=== PATIENT | female | born 1965 | race Caucasian/White ===

== ENCOUNTER 2018-05-12 21:00 | Inpatient (IN) | payer OTHER ==
[2018-05-12] MEDS ORDERED: ONDANSETRON 4 MG INJ IV (23:30)
[2018-05-13] MEDS ORDERED: DEXTROSE 50% 50 ML SYRINGE IV ×2 (00:30)
[2018-05-13] MEDS ORDERED: GLUCOSE GEL 15 GRAM TUBE BUCCAL (00:30)
[2018-05-13] MEDS ORDERED: GLUCAGON 1 MG INJ IM (00:30)
[2018-05-13] MEDS ORDERED: GLUCOSE GEL 15 GRAM TUBE PO ×2 (00:30)
[2018-05-13] MEDS: SOD CHLORIDE 0.9% 1,000 ML IV (01:16)
[2018-05-13] MEDS: PANTOPRAZOLE 40 MG INJ IV (06:02)
[2018-05-13] MEDS: ACETAMINOPHEN 325 MG TAB PO (06:02)
[2018-05-13] MEDS: PIPER-TAZO 3.375 GM IV (PMX) 100 ML IVPB (06:03)
[2018-05-13] MEDS: ACCU-CHEK XX (07:00)
[2018-05-13 07:13] LABS: ADD MAN DIFF? NO
[2018-05-13 07:18] LABS: BASOPHILS % 0.2 % (0.0-2.0); EOSINOPHILS # 0.2 10^3/ul (0.0-0.5); EOSINOPHILS % 2.6 % (0.0-7.0); HEMOGLOBIN 8.9 g/dl (12.0-16.0); LYMPHOCYTES % 21.6 % (15.0-51.0); MEAN CORPUSCULAR HEMOGLOBIN 29.9 pg (29.0-33.0); MEAN CORPUSCULAR VOLUME 90.6 fl (82.0-101.0); MEAN PLATELET VOLUME 9.4 fl (7.4-10.4); MONOCYTE # 0.6 10^3/ul (0.3-0.9); MONOCYTES % 6.9 % (0.0-11.0); NEUTROPHIL # 6.3 10^3/ul (1.6-7.5); NEUTROPHILS % 68.5 % (39.0-77.0); PLATELET COUNT 242 10^3/UL (140-415); RED BLOOD COUNT 2.98 10^6/ul (4.20-5.40); RED CELL DISTRIBUTION WIDTH 11.9 % (11.5-14.5)
[2018-05-13 07:18] LABS: WHITE BLOOD COUNT 9.2 10^3/ul (4.8-10.8)
[2018-05-13 07:44] LABS: ALANINE AMINOTRANSFERASE 11 IU/L (13-69); ALBUMIN 2.8 g/dl (3.3-4.9); ALBUMIN/GLOBULIN RATIO 0.93; ALKALINE PHOSPHATASE 122 IU/L (42-121); ANION GAP 12 (8-16); ASPARTATE AMINO TRANSFERASE 16 IU/L (15-46); BILIRUBIN,INDIRECT 0.1 mg/dl (0-1.1); BILIRUBIN,TOTAL 0.1 mg/dl (0.2-1.3); BLOOD UREA NITROGEN 14 mg/dl (7-20); CALCIUM 8.4 mg/dl (8.4-10.2); CARBON DIOXIDE 27 mmol/L (21-31); CHLORIDE 104 mmol/L (97-110); CREATININE 0.82 mg/dl (0.44-1.00); GLUCOSE 173 mg/dl (70-220); POTASSIUM 3.9 mmol/L (3.5-5.1); SODIUM 139 mmol/L (135-144); TOTAL PROTEIN 5.8 g/dl (6.1-8.1)
[2018-05-13] MEDS: INSULIN ASPART [NOVOLOG] 3 ML PEN SC (10:06)
== END 2018-05-13 12:05 | disposition left against medical advice (07) | DRG 690 ==
LOC: 2NE 21:00
DX: N12 Tubulo-interstitial nephritis, not specified as acute or chronic (principal); N17.9 Acute kidney failure, unspecified; E11.65 Type 2 diabetes mellitus with hyperglycemia; D63.8 Anemia in other chronic diseases classified elsewhere; Z59.0 Homelessness; Z79.4 Long term (current) use of insulin; Z91.14 Patient's other noncompliance with medication regimen
CPT/HCPCS: 80053; 82962; 85025

== ENCOUNTER 2018-05-14 20:24 | Emergency (ER) | payer OTHER ==
[2018-05-14 22:13] LABS: URINE BLOOD (Dip) POC 2+ (NEGATIVE); URINE KETONES (Dip) POC Negative (NEGATIVE); URINE LEUKOCYTE EST (Dip) POC Trace (NEGATIVE); URINE NITRITE (Dip) POC Negative (NEGATIVE); URINE TOTAL PROTEIN POC 3+ (NEGATIVE)
[2018-05-14 22:13] LABS: URINE PH (Dip) POC 5.5 (5.0-8.5)
[2018-05-14 22:28] LABS: ADD MAN DIFF? NO
[2018-05-14] MEDS: CEFTRIAXONE 1 GM/50 ML (PMX) 50 ML IVPB (22:33)
[2018-05-14] MEDS: SODIUM CHLORIDE 0.9% 1L BAG IV* (22:34)
[2018-05-14 22:35] LABS: WHITE BLOOD COUNT 8.3 10^3/ul (4.8-10.8)
[2018-05-14 22:35] LABS: BASOPHIL # 0.1 10^3/ul (0.0-0.1); BASOPHILS % 0.6 % (0.0-2.0); EOSINOPHILS # 0.2 10^3/ul (0.0-0.5); EOSINOPHILS % 2.8 % (0.0-7.0); HEMATOCRIT 32.8 % (37.0-47.0); HEMOGLOBIN 10.8 g/dl (12.0-16.0); LYMPHOCYTES % 36.7 % (15.0-51.0); MEAN CORPUSCULAR HEMOGLOBIN 29.2 pg (29.0-33.0); MEAN CORPUSCULAR HGB CONC 32.9 g/dl (32.0-37.0); MEAN CORPUSCULAR VOLUME 88.6 fl (82.0-101.0); MEAN PLATELET VOLUME 8.8 fl (7.4-10.4); MONOCYTE # 0.6 10^3/ul (0.3-0.9); MONOCYTES % 6.8 % (0.0-11.0); NEUTROPHIL # 4.3 10^3/ul (1.6-7.5); NEUTROPHILS % 51.4 % (39.0-77.0); PLATELET COUNT 388 10^3/UL (140-415); RED CELL DISTRIBUTION WIDTH 11.9 % (11.5-14.5)
[2018-05-14 22:38] LABS: ADD UMIC YES; UR ASCORBIC ACID 40 mg/dL (NEGATIVE); UR BILIRUBIN (Dip) NEGATIVE (NEGATIVE); UR BLOOD (Dip) NEGATIVE (NEGATIVE); UR CLARITY CLEAR (CLEAR); UR COLOR STRAW (YELLOW); UR GLUCOSE (Dip) 3+ mg/dL (NEGATIVE); UR KETONES (Dip) NEGATIVE (NEGATIVE); UR LEUKOCYTE ESTERASE (Dip) 1+ Leu/ul (NEGATIVE); UR NITRITE (Dip) NEGATIVE (NEGATIVE); UR RBC 4 /HPF (0-5); UR SPECIFIC GRAVITY (Dip) 1.009 (1.003-1.030); UR TOTAL PROTEIN (Dip) 2+ mg/dl (NEGATIVE); UR UROBILINOGEN (Dip) NEGATIVE (NEGATIVE); UR WBC 29 /HPF (0-5)
[2018-05-14 22:54] LABS: ALANINE AMINOTRANSFERASE 10 IU/L (13-69); ALBUMIN 3.9 g/dl (3.3-4.9); ALBUMIN/GLOBULIN RATIO 0.95; ALKALINE PHOSPHATASE 170 IU/L (42-121); ANION GAP 17 (8-16); ASPARTATE AMINO TRANSFERASE 18 IU/L (15-46); BILIRUBIN,INDIRECT 0.1 mg/dl (0-1.1); BILIRUBIN,TOTAL 0.1 mg/dl (0.2-1.3); BLOOD UREA NITROGEN 18 mg/dl (7-20); CALCIUM 9.4 mg/dl (8.4-10.2); CARBON DIOXIDE 29 mmol/L (21-31); CHLORIDE 96 mmol/L (97-110); CREATININE 0.89 mg/dl (0.44-1.00); GLUCOSE 200 mg/dl (70-220); LIPASE 127 U/L (23-300); POTASSIUM 3.9 mmol/L (3.5-5.1); SODIUM 138 mmol/L (135-144)
[2018-05-14] MEDS: KETOROLAC 15 MG INJ IV (23:11)
[2018-05-14] MEDS: METOPROLOL 5 MG INJ IV (23:11)
[2018-05-14] MEDS: METOCLOPRAMIDE 10 MG INJ IV (23:11)
[2018-05-14] MEDS: METOPROLOL 25 MG TAB PO (23:13)
[2018-05-14] MEDS ORDERED: DIPHENHYDRAMINE 50 MG INJ (23:21)
== END 2018-05-15 01:29 | disposition home or self-care (01) ==
LOC: E/R 05-15 01:29
DX: E11.65 Type 2 diabetes mellitus with hyperglycemia (principal); N12 Tubulo-interstitial nephritis, not specified as acute or chronic; I10 Essential (primary) hypertension; Z79.4 Long term (current) use of insulin
CPT/HCPCS: 36415; 71045; 80053; 81001; 81003; 82962; 83690; 85025; 93005; 96374; 96375; 99284-25

== ENCOUNTER 2018-11-03 17:36 | Emergency (ER) | payer OTHER ==
[2018-11-03 20:46] LABS: URINE PH (Dip) POC 5.5 (5.0-8.5)
[2018-11-03 20:46] LABS: URINE BLOOD (Dip) POC 2+ (NEGATIVE); URINE GLUCOSE (Dip) POC Negative (NEGATIVE); URINE KETONES (Dip) POC Negative (NEGATIVE); URINE LEUKOCYTE EST (Dip) POC 2+ (NEGATIVE); URINE NITRITE (Dip) POC Negative (NEGATIVE); URINE TOTAL PROTEIN POC 2+ (NEGATIVE)
[2018-11-03] MEDS: KETOROLAC 30 MG INJ IM (20:49)
== END 2018-11-03 21:27 | disposition home or self-care (01) ==
LOC: FTE 17:36
DX: N39.0 Urinary tract infection, site not specified (principal); E11.9 Type 2 diabetes mellitus without complications; Z79.4 Long term (current) use of insulin
CPT/HCPCS: 81003; 81025; 82962; 87086; 96372; 99284-25

== ENCOUNTER 2018-12-16 19:16 | Inpatient (IN) | payer OTHER ==
[2018-12-16] MEDS ORDERED: LACTULOSE 30ML CUP PO (22:00)
[2018-12-16] MEDS ORDERED: MAGNESIUM HYDROXIDE 30ML CUP PO (22:00)
[2018-12-16] MEDS ORDERED: BISACODYL 10 MG SUPP PR (22:00)
[2018-12-16] MEDS ORDERED: CARvedilol (CR) 10 MG CAP PO (22:30)
[2018-12-16] MEDS: ATORVASTATIN 80 MG TAB PO (23:44)
[2018-12-16] MEDS: DOCUSATE SODIUM 100 MG CAP PO (23:44)
[2018-12-16] MEDS: SENNA TAB PO (23:44)
[2018-12-16] MEDS: ACCU-CHEK XX (23:45)
[2018-12-16] MEDS: FAMOTIDINE 20 MG TAB PO (23:45)
[2018-12-16] MEDS ORDERED: GLUCOSE GEL 15 GRAM TUBE BUCCAL (23:45)
[2018-12-16] MEDS ORDERED: GLUCAGON 1 MG INJ IM (23:45)
[2018-12-16] MEDS ORDERED: DEXTROSE 50% 50 ML SYRINGE IV ×2 (23:45)
[2018-12-16] MEDS ORDERED: GLUCOSE GEL 15 GRAM TUBE PO ×2 (23:45)
[2018-12-16] MEDS: INSULIN ASPART [NOVOLOG] 3 ML PEN SC (23:51)
[2018-12-17] MEDS: LEVOFLOXACIN 250 MG TAB PO (06:40)
[2018-12-17 07:05] LABS: ADD MAN DIFF? NO
[2018-12-17 07:10] LABS: BASOPHILS % 0.5 % (0.0-2.0); EOSINOPHILS # 0.3 10^3/ul (0.0-0.5); EOSINOPHILS % 3.1 % (0.0-7.0); HEMATOCRIT 26.1 % (37.0-47.0); HEMOGLOBIN 8.5 g/dl (12.0-16.0); LYMPHOCYTES # 2.4 10^3/ul (0.8-2.9); LYMPHOCYTES % 28.4 % (15.0-51.0); MEAN CORPUSCULAR HEMOGLOBIN 28.8 pg (29.0-33.0); MEAN CORPUSCULAR HGB CONC 32.6 g/dl (32.0-37.0); MEAN CORPUSCULAR VOLUME 88.5 fl (82.0-101.0); MEAN PLATELET VOLUME 8.3 fl (7.4-10.4); MONOCYTE # 0.4 10^3/ul (0.3-0.9); MONOCYTES % 4.3 % (0.0-11.0); NEUTROPHIL # 5.3 10^3/ul (1.6-7.5); NEUTROPHILS % 63.2 % (39.0-77.0); PLATELET COUNT 370 10^3/UL (140-415); RED BLOOD COUNT 2.95 10^6/ul (4.20-5.40); RED CELL DISTRIBUTION WIDTH 12.7 % (11.5-14.5)
[2018-12-17 07:10] LABS: WHITE BLOOD COUNT 8.4 10^3/ul (4.8-10.8)
[2018-12-17 07:32] LABS: ALANINE AMINOTRANSFERASE 14 IU/L (13-69); ALBUMIN 3.4 g/dl (3.3-4.9); ALBUMIN/GLOBULIN RATIO 1.03; ALKALINE PHOSPHATASE 73 IU/L (42-121); ANION GAP 8 (5-13); ASPARTATE AMINO TRANSFERASE 25 IU/L (15-46); BILIRUBIN,INDIRECT 0.2 mg/dl (0-1.1); BILIRUBIN,TOTAL 0.2 mg/dl (0.2-1.3); BLOOD UREA NITROGEN 17 mg/dl (7-20); CALCIUM 9.3 mg/dl (8.4-10.2); CARBON DIOXIDE 27 mmol/L (21-31); CHLORIDE 107 mmol/L (97-110); CREATININE 1.32 mg/dl (0.44-1.00); Estimated GFR 42 mL/min (>60); GLUCOSE 178 mg/dl (70-220); POTASSIUM 4.3 mmol/L (3.5-5.1); SODIUM 142 mmol/L (135-144); TOTAL PROTEIN 6.7 g/dl (6.1-8.1)
[2018-12-17] MEDS ORDERED: INSULIN ASPART [NOVOLOG] 3 ML PEN SC (07:35)
[2018-12-17] MEDS: ACCU-CHEK XX ×4 (07:53→20:38)
[2018-12-17] MEDS: INSULIN ASPART [NOVOLOG] 3 ML PEN SC ×4 (07:59→20:44)
[2018-12-17] MEDS: ACETAMINOPHEN 325 MG TAB PO (08:11)
[2018-12-17] MEDS: ASPIRIN 81 MG TAB PO (08:25)
[2018-12-17] MEDS: DOCUSATE SODIUM 100 MG CAP PO ×2 (08:25→20:37)
[2018-12-17] MEDS: AMLODIPINE 10 MG TAB PO (08:27)
[2018-12-17] MEDS: CLOPIDOGREL 75 MG TAB PO (08:27)
[2018-12-17] MEDS: FAMOTIDINE 20 MG TAB PO ×2 (08:27→20:38)
[2018-12-17 11:10] LABS: HEMOGLOBIN A1C 8.8 % (0-5.9)
[2018-12-17] MEDS: INSULIN GLARGINE [LANTus] (100 UNITS/ML) SYG SC (17:43)
[2018-12-17] MEDS: SENNA TAB PO (20:37)
[2018-12-17] MEDS: ATORVASTATIN 80 MG TAB PO (20:37)
[2018-12-18] MEDS: ACETAMINOPHEN 325 MG TAB PO ×3 (00:29→20:10)
[2018-12-18 06:22] LABS: ADD MAN DIFF? NO
[2018-12-18 06:29] LABS: WHITE BLOOD COUNT 9.2 10^3/ul (4.8-10.8)
[2018-12-18 06:29] LABS: BASOPHILS % 0.3 % (0.0-2.0); EOSINOPHILS # 0.2 10^3/ul (0.0-0.5); EOSINOPHILS % 2.4 % (0.0-7.0); HEMATOCRIT 25.1 % (37.0-47.0); HEMOGLOBIN 8.4 g/dl (12.0-16.0); LYMPHOCYTES # 3.1 10^3/ul (0.8-2.9); LYMPHOCYTES % 33.7 % (15.0-51.0); MEAN CORPUSCULAR HEMOGLOBIN 29.1 pg (29.0-33.0); MEAN CORPUSCULAR HGB CONC 33.5 g/dl (32.0-37.0); MEAN CORPUSCULAR VOLUME 86.9 fl (82.0-101.0); MEAN PLATELET VOLUME 8.2 fl (7.4-10.4); MONOCYTE # 0.5 10^3/ul (0.3-0.9); MONOCYTES % 5.2 % (0.0-11.0); NEUTROPHIL # 5.3 10^3/ul (1.6-7.5); NEUTROPHILS % 57.6 % (39.0-77.0); PLATELET COUNT 373 10^3/UL (140-415); RED BLOOD COUNT 2.89 10^6/ul (4.20-5.40); RED CELL DISTRIBUTION WIDTH 12.7 % (11.5-14.5)
[2018-12-18] MEDS: LEVOFLOXACIN 250 MG TAB PO (06:53)
[2018-12-18 07:05] LABS: ANION GAP 12 (5-13); BLOOD UREA NITROGEN 28 mg/dl (7-20); CARBON DIOXIDE 27 mmol/L (21-31); CHLORIDE 102 mmol/L (97-110); CREATININE 1.48 mg/dl (0.44-1.00); Estimated GFR 37 mL/min (>60); GLUCOSE 197 mg/dl (70-220); MAGNESIUM 1.8 mg/dl (1.7-2.5); POTASSIUM 4.1 mmol/L (3.5-5.1); SODIUM 141 mmol/L (135-144)
[2018-12-18] MEDS: ACCU-CHEK XX ×4 (07:05→21:31)
[2018-12-18] MEDS: INSULIN ASPART [NOVOLOG] 3 ML PEN SC ×4 (08:22→20:18)
[2018-12-18] MEDS: FAMOTIDINE 20 MG TAB PO ×2 (08:52→20:10)
[2018-12-18] MEDS: AMLODIPINE 10 MG TAB PO (08:52)
[2018-12-18] MEDS: DOCUSATE SODIUM 100 MG CAP PO ×2 (08:52→20:10)
[2018-12-18] MEDS: CLOPIDOGREL 75 MG TAB PO (08:52)
[2018-12-18 10:18] LABS: IRON 56 ug/dl (35-150)
[2018-12-18 10:27] LABS: % IRON SATURATION 22 % SAT (22-52); TOTAL IRON BINDING CAPACITY 251 ug/dl (241-421)
[2018-12-18] MEDS: SENNA TAB PO (20:10)
[2018-12-18] MEDS: ATORVASTATIN 80 MG TAB PO (20:10)
[2018-12-18] MEDS: HYDROCODONE/APAP (5/325) TAB PO (22:30)
[2018-12-18] MEDS: DICLOFENAC SODIUM 1% GEL 100 GM TUBE TP (22:47)
[2018-12-19] MEDS: INSULIN GLARGINE [LANTus] (100 UNITS/ML) SYG SC (07:53)
[2018-12-19] MEDS: INSULIN ASPART [NOVOLOG] 3 ML PEN SC ×4 (07:53→20:29)
[2018-12-19 07:56] LABS: ADD MAN DIFF? NO
[2018-12-19] MEDS: ACCU-CHEK XX ×4 (07:56→20:28)
[2018-12-19 08:01] LABS: BASOPHIL # 0.1 10^3/ul (0.0-0.1); BASOPHILS % 0.6 % (0.0-2.0); EOSINOPHILS # 0.3 10^3/ul (0.0-0.5); EOSINOPHILS % 3.1 % (0.0-7.0); HEMATOCRIT 25.6 % (37.0-47.0); HEMOGLOBIN 8.3 g/dl (12.0-16.0); LYMPHOCYTES # 2.8 10^3/ul (0.8-2.9); MEAN CORPUSCULAR HEMOGLOBIN 28.6 pg (29.0-33.0); MEAN CORPUSCULAR HGB CONC 32.4 g/dl (32.0-37.0); MEAN CORPUSCULAR VOLUME 88.3 fl (82.0-101.0); MEAN PLATELET VOLUME 8.4 fl (7.4-10.4); MONOCYTE # 0.5 10^3/ul (0.3-0.9); MONOCYTES % 5.6 % (0.0-11.0); NEUTROPHIL # 4.4 10^3/ul (1.6-7.5); NEUTROPHILS % 54.8 % (39.0-77.0); PLATELET COUNT 413 10^3/UL (140-415); RED CELL DISTRIBUTION WIDTH 12.9 % (11.5-14.5)
[2018-12-19 08:01] LABS: WHITE BLOOD COUNT 8.1 10^3/ul (4.8-10.8)
[2018-12-19 08:20] LABS: ANION GAP 12 (5-13); BLOOD UREA NITROGEN 31 mg/dl (7-20); CALCIUM 9.6 mg/dl (8.4-10.2); CARBON DIOXIDE 27 mmol/L (21-31); CHLORIDE 103 mmol/L (97-110); CREATININE 1.56 mg/dl (0.44-1.00); Estimated GFR 35 mL/min (>60); GLUCOSE 207 mg/dl (70-220); MAGNESIUM 1.8 mg/dl (1.7-2.5); PHOSPHORUS 5.5 mg/dl (2.5-4.9); POTASSIUM 4.1 mmol/L (3.5-5.1); SODIUM 142 mmol/L (135-144)
[2018-12-19] MEDS: DOCUSATE SODIUM 100 MG CAP PO ×2 (08:52→20:23)
[2018-12-19] MEDS: DICLOFENAC SODIUM 1% GEL 100 GM TUBE TP ×4 (08:52→20:22)
[2018-12-19] MEDS: ASPIRIN (EC) 81 MG TAB PO (08:52)
[2018-12-19] MEDS: FAMOTIDINE 20 MG TAB PO ×2 (08:52→20:23)
[2018-12-19] MEDS: CLOPIDOGREL 75 MG TAB PO (08:52)
[2018-12-19] MEDS: AMLODIPINE 10 MG TAB PO (08:53)
[2018-12-19] MEDS: LIDOCAINE 5% PATCH TD ×2 (09:00→12:30)
[2018-12-19 11:34] LABS: ADD UMIC YES; UR ASCORBIC ACID NEGATIVE (NEGATIVE); UR BACTERIA FEW /HPF (NONE SEEN); UR BILIRUBIN (Dip) NEGATIVE (NEGATIVE); UR BLOOD (Dip) 1+ mg/dL (NEGATIVE); UR CLARITY SLIGHTLY CLOUDY (CLEAR); UR COLOR YELLOW (YELLOW); UR GLUCOSE (Dip) 1+ mg/dL (NEGATIVE); UR KETONES (Dip) NEGATIVE (NEGATIVE); UR LEUKOCYTE ESTERASE (Dip) 3+ Leu/ul (NEGATIVE); UR MUCUS FEW /HPF (NONE SEEN); UR NITRITE (Dip) NEGATIVE (NEGATIVE); UR RBC 11 /HPF (0-5); UR TOTAL PROTEIN (Dip) 2+ mg/dl (NEGATIVE); UR UROBILINOGEN (Dip) NEGATIVE (NEGATIVE); UR WBC 145 /HPF (0-5)
[2018-12-19 13:19] LABS: SODIUM,URINE RANDOM 53 mmol/L (30-90)
[2018-12-19 13:19] LABS: CREATININE,URINE RANDOM 65.86 mg/dl (20-320)
[2018-12-19 18:36] LABS: ADD UMIC YES; UR ASCORBIC ACID NEGATIVE (NEGATIVE); UR BILIRUBIN (Dip) NEGATIVE (NEGATIVE); UR BLOOD (Dip) 1+ mg/dL (NEGATIVE); UR CLARITY CLEAR (CLEAR); UR COLOR YELLOW (YELLOW); UR GLUCOSE (Dip) 1+ mg/dL (NEGATIVE); UR KETONES (Dip) NEGATIVE (NEGATIVE); UR LEUKOCYTE ESTERASE (Dip) 1+ Leu/ul (NEGATIVE); UR NITRITE (Dip) NEGATIVE (NEGATIVE); UR RBC 5 /HPF (0-5); UR SPECIFIC GRAVITY (Dip) 1.011 (1.003-1.030); UR TOTAL PROTEIN (Dip) 2+ mg/dl (NEGATIVE); UR UROBILINOGEN (Dip) NEGATIVE (NEGATIVE); UR WBC 8 /HPF (0-5)
[2018-12-19] MEDS: SENNA TAB PO (20:23)
[2018-12-19] MEDS: MELATONIN 5 MG TABLET PO (20:23)
[2018-12-19] MEDS: ATORVASTATIN 80 MG TAB PO (20:23)
[2018-12-19] MEDS: ACETAMINOPHEN 325 MG TAB PO (21:28)
[2018-12-20 07:33] LABS: ANION GAP 9 (5-13); BLOOD UREA NITROGEN 41 mg/dl (7-20); CALCIUM 9.2 mg/dl (8.4-10.2); CARBON DIOXIDE 29 mmol/L (21-31); CHLORIDE 101 mmol/L (97-110); CREATININE 1.56 mg/dl (0.44-1.00); Estimated GFR 35 mL/min (>60); GLUCOSE 223 mg/dl (70-220); MAGNESIUM 1.8 mg/dl (1.7-2.5); POTASSIUM 4.5 mmol/L (3.5-5.1); SODIUM 139 mmol/L (135-144)
[2018-12-20] MEDS: ACCU-CHEK XX ×4 (07:56→20:13)
[2018-12-20] MEDS: INSULIN ASPART [NOVOLOG] 3 ML PEN SC ×4 (07:59→20:09)
[2018-12-20] MEDS: INSULIN GLARGINE [LANTus] (100 UNITS/ML) SYG SC (08:00)
[2018-12-20] MEDS: DOCUSATE SODIUM 100 MG CAP PO ×2 (08:42→20:03)
[2018-12-20] MEDS: CLOPIDOGREL 75 MG TAB PO (08:44)
[2018-12-20] MEDS: FAMOTIDINE 20 MG TAB PO ×2 (08:44→20:04)
[2018-12-20] MEDS: ASPIRIN (EC) 81 MG TAB PO (08:44)
[2018-12-20] MEDS: AMLODIPINE 10 MG TAB PO (08:44)
[2018-12-20] MEDS: LIDOCAINE 5% PATCH TD (08:45)
[2018-12-20] MEDS: DICLOFENAC SODIUM 1% GEL 100 GM TUBE TP ×4 (08:45→20:10)
[2018-12-20] MEDS: ACETAMINOPHEN 325 MG TAB PO (19:58)
[2018-12-20] MEDS: ATORVASTATIN 80 MG TAB PO (20:04)
[2018-12-20] MEDS: MELATONIN 5 MG TABLET PO (20:04)
[2018-12-20] MEDS: SENNA TAB PO (20:04)
[2018-12-21] MEDS: ACCU-CHEK XX ×4 (08:02→20:23)
[2018-12-21] MEDS: INSULIN ASPART [NOVOLOG] 3 ML PEN SC ×4 (08:07→20:19)
[2018-12-21] MEDS: INSULIN GLARGINE [LANTus] (100 UNITS/ML) SYG SC (08:08)
[2018-12-21] MEDS: DICLOFENAC SODIUM 1% GEL 100 GM TUBE TP ×4 (08:26→20:22)
[2018-12-21] MEDS: FAMOTIDINE 20 MG TAB PO (08:26)
[2018-12-21] MEDS: LIDOCAINE 5% PATCH TD (08:26)
[2018-12-21] MEDS: CLOPIDOGREL 75 MG TAB PO (08:26)
[2018-12-21] MEDS: ASPIRIN (EC) 81 MG TAB PO (08:26)
[2018-12-21] MEDS: DOCUSATE SODIUM 100 MG CAP PO ×2 (08:26→20:22)
[2018-12-21] MEDS: AMLODIPINE 10 MG TAB PO (08:38)
[2018-12-21] MEDS: ACETAMINOPHEN 325 MG TAB PO (17:35)
[2018-12-21] MEDS: MELATONIN 5 MG TABLET PO (20:21)
[2018-12-21] MEDS: ATORVASTATIN 80 MG TAB PO (20:21)
[2018-12-21] MEDS: SENNA TAB PO (20:22)
[2018-12-22] MEDS: INSULIN ASPART [NOVOLOG] 3 ML PEN SC ×4 (07:51→20:32)
[2018-12-22] MEDS: INSULIN GLARGINE [LANTus] (100 UNITS/ML) SYG SC (07:52)
[2018-12-22] MEDS: ACCU-CHEK XX ×4 (07:52→21:53)
[2018-12-22] MEDS: DICLOFENAC SODIUM 1% GEL 100 GM TUBE TP ×4 (08:51→20:29)
[2018-12-22] MEDS: LIDOCAINE 5% PATCH TD (08:51)
[2018-12-22] MEDS: ASPIRIN (EC) 81 MG TAB PO (08:52)
[2018-12-22] MEDS: DOCUSATE SODIUM 100 MG CAP PO ×2 (08:52→21:00)
[2018-12-22] MEDS: CLOPIDOGREL 75 MG TAB PO (08:52)
[2018-12-22] MEDS: AMLODIPINE 10 MG TAB PO (09:00)
[2018-12-22] MEDS: FAMOTIDINE 20 MG TAB PO (09:03)
[2018-12-22] MEDS: ACETAMINOPHEN 325 MG TAB PO (10:06)
[2018-12-22 16:31] LABS: CREATININE, RANDOM URINE 64 mg/dL (20-275); MICROALBUMIN 44.9 mg/dL; MICROALBUMIN/CREATININE RATIO 702 (<30)
[2018-12-22] MEDS: ATORVASTATIN 80 MG TAB PO (20:28)
[2018-12-22] MEDS: MELATONIN 5 MG TABLET PO (20:28)
[2018-12-22] MEDS: SENNA TAB PO (21:00)
[2018-12-23] MEDS: ACETAMINOPHEN 325 MG TAB PO (05:59)
[2018-12-23] MEDS: ACCU-CHEK XX ×4 (07:05→21:25)
[2018-12-23 07:21] LABS: ADD MAN DIFF? NO
[2018-12-23 07:24] LABS: BASOPHILS % 0.4 % (0.0-2.0); EOSINOPHILS # 0.3 10^3/ul (0.0-0.5); EOSINOPHILS % 2.8 % (0.0-7.0); HEMATOCRIT 25.2 % (37.0-47.0); HEMOGLOBIN 8.4 g/dl (12.0-16.0); LYMPHOCYTES # 2.9 10^3/ul (0.8-2.9); MEAN CORPUSCULAR HEMOGLOBIN 29.4 pg (29.0-33.0); MEAN CORPUSCULAR HGB CONC 33.3 g/dl (32.0-37.0); MEAN CORPUSCULAR VOLUME 88.1 fl (82.0-101.0); MEAN PLATELET VOLUME 8.8 fl (7.4-10.4); MONOCYTE # 0.4 10^3/ul (0.3-0.9); MONOCYTES % 4.3 % (0.0-11.0); NEUTROPHIL # 6.6 10^3/ul (1.6-7.5); NEUTROPHILS % 63.9 % (39.0-77.0); PLATELET COUNT 385 10^3/UL (140-415); RED BLOOD COUNT 2.86 10^6/ul (4.20-5.40); RED CELL DISTRIBUTION WIDTH 13.2 % (11.5-14.5)
[2018-12-23 07:24] LABS: WHITE BLOOD COUNT 10.3 10^3/ul (4.8-10.8)
[2018-12-23 07:49] LABS: ANION GAP 11 (5-13); BLOOD UREA NITROGEN 49 mg/dl (7-20); CALCIUM 9.8 mg/dl (8.4-10.2); CARBON DIOXIDE 29 mmol/L (21-31); CHLORIDE 100 mmol/L (97-110); CREATININE 1.66 mg/dl (0.44-1.00); Estimated GFR 32 mL/min (>60); GLUCOSE 193 mg/dl (70-220); MAGNESIUM 1.9 mg/dl (1.7-2.5); PHOSPHORUS 5.1 mg/dl (2.5-4.9); POTASSIUM 4.1 mmol/L (3.5-5.1); SODIUM 140 mmol/L (135-144)
[2018-12-23] MEDS: INSULIN GLARGINE [LANTus] (100 UNITS/ML) SYG SC ×2 (08:07→16:06)
[2018-12-23] MEDS: INSULIN ASPART [NOVOLOG] 3 ML PEN SC ×5 (08:08→21:00)
[2018-12-23] MEDS: FAMOTIDINE 20 MG TAB PO (08:21)
[2018-12-23] MEDS: DOCUSATE SODIUM 100 MG CAP PO ×2 (08:21→21:23)
[2018-12-23] MEDS: CLOPIDOGREL 75 MG TAB PO (08:21)
[2018-12-23] MEDS: ASPIRIN (EC) 81 MG TAB PO (08:22)
[2018-12-23] MEDS: LIDOCAINE 5% PATCH TD (08:23)
[2018-12-23] MEDS: AMLODIPINE 10 MG TAB PO (08:23)
[2018-12-23] MEDS: DICLOFENAC SODIUM 1% GEL 100 GM TUBE TP ×4 (08:31→21:25)
[2018-12-23] MEDS: LINAGLIPTIN 5 MG TABLET PO (09:52)
[2018-12-23] MEDS: MELATONIN 5 MG TABLET PO (21:23)
[2018-12-23] MEDS: SENNA TAB PO (21:23)
[2018-12-23] MEDS: ATORVASTATIN 80 MG TAB PO (21:24)
[2018-12-24] MEDS: ACETAMINOPHEN 325 MG TAB PO (00:02)
[2018-12-24] MEDS: ACCU-CHEK XX ×5 (02:00→21:45)
[2018-12-24 07:09] LABS: ANION GAP 9 (5-13); BLOOD UREA NITROGEN 53 mg/dl (7-20); CALCIUM 9.7 mg/dl (8.4-10.2); CARBON DIOXIDE 30 mmol/L (21-31); CHLORIDE 100 mmol/L (97-110); CREATININE 1.78 mg/dl (0.44-1.00); Estimated GFR 30 mL/min (>60); GLUCOSE 129 mg/dl (70-220); PHOSPHORUS 5.5 mg/dl (2.5-4.9); POTASSIUM 4.4 mmol/L (3.5-5.1); SODIUM 139 mmol/L (135-144)
[2018-12-24] MEDS: INSULIN ASPART [NOVOLOG] 3 ML PEN SC ×7 (08:40→20:31)
[2018-12-24] MEDS: DOCUSATE SODIUM 100 MG CAP PO ×2 (08:42→20:30)
[2018-12-24] MEDS: CLOPIDOGREL 75 MG TAB PO (08:42)
[2018-12-24] MEDS: INSULIN GLARGINE [LANTus] (100 UNITS/ML) SYG SC (08:42)
[2018-12-24] MEDS: LINAGLIPTIN 5 MG TABLET PO (08:42)
[2018-12-24] MEDS: FAMOTIDINE 20 MG TAB PO (08:43)
[2018-12-24] MEDS: LIDOCAINE 5% PATCH TD (08:43)
[2018-12-24] MEDS: ASPIRIN (EC) 81 MG TAB PO (08:43)
[2018-12-24] MEDS: DICLOFENAC SODIUM 1% GEL 100 GM TUBE TP ×4 (08:43→21:00)
[2018-12-24] MEDS: AMLODIPINE 10 MG TAB PO (08:45)
[2018-12-24] MEDS: MELATONIN 5 MG TABLET PO (20:22)
[2018-12-24] MEDS: ATORVASTATIN 80 MG TAB PO (20:22)
[2018-12-24] MEDS: LORATADINE 10 MG TAB PO (20:27)
[2018-12-24] MEDS: SENNA TAB PO (20:31)
[2018-12-25] MEDS: ACCU-CHEK XX ×5 (02:00→20:47)
[2018-12-25] MEDS: LORATADINE 10 MG TAB PO (05:35)
[2018-12-25 06:59] LABS: ANION GAP 8 (5-13); BLOOD UREA NITROGEN 51 mg/dl (7-20); CALCIUM 9.9 mg/dl (8.4-10.2); CARBON DIOXIDE 31 mmol/L (21-31); CHLORIDE 103 mmol/L (97-110); CREATININE 1.59 mg/dl (0.44-1.00); Estimated GFR 34 mL/min (>60); GLUCOSE 193 mg/dl (70-220); MAGNESIUM 2.2 mg/dl (1.7-2.5); PHOSPHORUS 5.9 mg/dl (2.5-4.9); POTASSIUM 4.1 mmol/L (3.5-5.1); SODIUM 142 mmol/L (135-144)
[2018-12-25] MEDS: INSULIN GLARGINE [LANTus] (100 UNITS/ML) SYG SC (07:47)
[2018-12-25] MEDS: INSULIN ASPART [NOVOLOG] 3 ML PEN SC ×7 (07:48→20:47)
[2018-12-25] MEDS: LINAGLIPTIN 5 MG TABLET PO (08:41)
[2018-12-25] MEDS: LIDOCAINE 5% PATCH TD (08:41)
[2018-12-25] MEDS: DOCUSATE SODIUM 100 MG CAP PO ×2 (08:41→20:46)
[2018-12-25] MEDS: ACETAMINOPHEN 325 MG TAB PO (08:42)
[2018-12-25] MEDS: ASPIRIN (EC) 81 MG TAB PO (08:42)
[2018-12-25] MEDS: CLOPIDOGREL 75 MG TAB PO (08:43)
[2018-12-25] MEDS: FAMOTIDINE 20 MG TAB PO (08:43)
[2018-12-25] MEDS: AMLODIPINE 10 MG TAB PO (08:43)
[2018-12-25] MEDS: DICLOFENAC SODIUM 1% GEL 100 GM TUBE TP ×4 (08:43→20:47)
[2018-12-25] MEDS: SEVELAMER CARBONATE 800 MG TABLET PO ×2 (12:00→17:27)
[2018-12-25] MEDS: ATORVASTATIN 80 MG TAB PO (20:46)
[2018-12-25] MEDS: MELATONIN 5 MG TABLET PO (20:46)
[2018-12-25] MEDS: SENNA TAB PO (20:46)
[2018-12-26] MEDS: ACCU-CHEK XX ×5 (02:00→20:41)
[2018-12-26] MEDS: SEVELAMER CARBONATE 800 MG TABLET PO ×3 (08:01→17:16)
[2018-12-26] MEDS: LINAGLIPTIN 5 MG TABLET PO (08:01)
[2018-12-26] MEDS: INSULIN ASPART [NOVOLOG] 3 ML PEN SC ×7 (08:03→20:41)
[2018-12-26] MEDS: INSULIN GLARGINE [LANTus] (100 UNITS/ML) SYG SC (08:04)
[2018-12-26] MEDS: AMLODIPINE 10 MG TAB PO (09:00)
[2018-12-26] MEDS: DICLOFENAC SODIUM 1% GEL 100 GM TUBE TP ×4 (09:00→20:41)
[2018-12-26] MEDS: CLOPIDOGREL 75 MG TAB PO (09:29)
[2018-12-26] MEDS: ASPIRIN (EC) 81 MG TAB PO (09:30)
[2018-12-26] MEDS: DOCUSATE SODIUM 100 MG CAP PO ×2 (09:30→20:40)
[2018-12-26] MEDS: ACETAMINOPHEN 325 MG TAB PO (09:30)
[2018-12-26] MEDS: FAMOTIDINE 20 MG TAB PO (09:30)
[2018-12-26] MEDS: LIDOCAINE 5% PATCH TD (09:31)
[2018-12-26] MEDS: SENNA TAB PO (20:40)
[2018-12-26] MEDS: ATORVASTATIN 80 MG TAB PO (20:40)
[2018-12-27] MEDS: ACCU-CHEK XX ×5 (02:00→21:18)
[2018-12-27] MEDS: LORATADINE 10 MG TAB PO (06:58)
[2018-12-27] MEDS: SEVELAMER CARBONATE 800 MG TABLET PO ×3 (07:58→17:28)
[2018-12-27] MEDS: LINAGLIPTIN 5 MG TABLET PO (07:59)
[2018-12-27] MEDS: INSULIN ASPART [NOVOLOG] 3 ML PEN SC ×7 (08:00→21:00)
[2018-12-27] MEDS: INSULIN GLARGINE [LANTus] (100 UNITS/ML) SYG SC (08:02)
[2018-12-27 08:34] LABS: ADD MAN DIFF? NO
[2018-12-27 08:38] LABS: WHITE BLOOD COUNT 8.6 10^3/ul (4.8-10.8)
[2018-12-27 08:38] LABS: BASOPHIL # 0.1 10^3/ul (0.0-0.1); BASOPHILS % 0.6 % (0.0-2.0); EOSINOPHILS # 0.3 10^3/ul (0.0-0.5); EOSINOPHILS % 3.8 % (0.0-7.0); HEMATOCRIT 27.6 % (37.0-47.0); HEMOGLOBIN 8.9 g/dl (12.0-16.0); LYMPHOCYTES # 1.9 10^3/ul (0.8-2.9); LYMPHOCYTES % 21.8 % (15.0-51.0); MEAN CORPUSCULAR HEMOGLOBIN 28.9 pg (29.0-33.0); MEAN CORPUSCULAR HGB CONC 32.2 g/dl (32.0-37.0); MEAN CORPUSCULAR VOLUME 89.6 fl (82.0-101.0); MEAN PLATELET VOLUME 9.1 fl (7.4-10.4); MONOCYTE # 0.4 10^3/ul (0.3-0.9); MONOCYTES % 4.3 % (0.0-11.0); NEUTROPHILS % 69.2 % (39.0-77.0); PLATELET COUNT 401 10^3/UL (140-415); RED BLOOD COUNT 3.08 10^6/ul (4.20-5.40); RED CELL DISTRIBUTION WIDTH 13.9 % (11.5-14.5)
[2018-12-27 09:03] LABS: ANION GAP 11 (5-13); BLOOD UREA NITROGEN 53 mg/dl (7-20); CARBON DIOXIDE 29 mmol/L (21-31); CHLORIDE 100 mmol/L (97-110); CREATININE 1.79 mg/dl (0.44-1.00); Estimated GFR 30 mL/min (>60); GLUCOSE 212 mg/dl (70-220); MAGNESIUM 2.2 mg/dl (1.7-2.5); PHOSPHORUS 5.2 mg/dl (2.5-4.9); POTASSIUM 4.8 mmol/L (3.5-5.1); SODIUM 140 mmol/L (135-144)
[2018-12-27] MEDS: DICLOFENAC SODIUM 1% GEL 100 GM TUBE TP ×4 (09:45→21:18)
[2018-12-27] MEDS: LIDOCAINE 5% PATCH TD (09:45)
[2018-12-27] MEDS: ASPIRIN (EC) 81 MG TAB PO (09:46)
[2018-12-27] MEDS: DOCUSATE SODIUM 100 MG CAP PO ×2 (09:46→21:17)
[2018-12-27] MEDS: AMLODIPINE 10 MG TAB PO (09:46)
[2018-12-27] MEDS: CLOPIDOGREL 75 MG TAB PO (09:46)
[2018-12-27] MEDS: FAMOTIDINE 20 MG TAB PO (09:47)
[2018-12-27] MEDS: ATORVASTATIN 80 MG TAB PO (21:17)
[2018-12-27] MEDS: SENNA TAB PO (21:17)
[2018-12-28] MEDS: ACCU-CHEK XX ×4 (02:00→17:27)
[2018-12-28] MEDS: SEVELAMER CARBONATE 800 MG TABLET PO ×3 (07:45→17:25)
[2018-12-28] MEDS: INSULIN GLARGINE [LANTus] (100 UNITS/ML) SYG SC (07:46)
[2018-12-28] MEDS: INSULIN ASPART [NOVOLOG] 3 ML PEN SC ×6 (07:47→17:27)
[2018-12-28] MEDS: ASPIRIN (EC) 81 MG TAB PO (08:45)
[2018-12-28] MEDS: LINAGLIPTIN 5 MG TABLET PO (08:45)
[2018-12-28] MEDS: glipiZIDE (XL) 2.5 MG TAB PO (08:45)
[2018-12-28] MEDS: FAMOTIDINE 20 MG TAB PO (08:45)
[2018-12-28] MEDS: CLOPIDOGREL 75 MG TAB PO (08:45)
[2018-12-28] MEDS: AMLODIPINE 10 MG TAB PO (08:46)
[2018-12-28] MEDS: DOCUSATE SODIUM 100 MG CAP PO (08:48)
[2018-12-28] MEDS: DICLOFENAC SODIUM 1% GEL 100 GM TUBE TP ×3 (08:50→17:27)
[2018-12-28] MEDS: LIDOCAINE 5% PATCH TD (08:50)
[2018-12-28] MEDS: ACETAMINOPHEN 325 MG TAB PO (14:44)
[2018-12-28] MEDS: LORATADINE 10 MG TAB PO (17:25)
== END 2018-12-28 18:40 | disposition home health service (06) | DRG 57 ==
LOC: VRC 19:16
PROVIDERS: Physical Medicine & Rehabilitation
PROC: F07Z5ZZ Bed Mobility Treatment (ICD-10-PCS; principal; 2018-12-18)
PROC: F07Z8ZZ Transfer Training Treatment (ICD-10-PCS; 2018-12-18)
PROC: F07Z9ZZ Gait Training/Functional Ambulation Treatment (ICD-10-PCS; 2018-12-18)
PROC: F08Z0ZZ Bathing/Showering Techniques Treatment (ICD-10-PCS; 2018-12-18)
PROC: F08Z2ZZ Grooming/Personal Hygiene Treatment (ICD-10-PCS; 2018-12-18)
PROC: F08Z1ZZ Dressing Techniques Treatment (ICD-10-PCS; 2018-12-18)
PROC: F06ZDZZ Swallowing Dysfunction Treatment (ICD-10-PCS; 2018-12-18)
DX: I69.354 Hemiplegia and hemiparesis following cerebral infarction affecting left non-dominant side (principal); N17.9 Acute kidney failure, unspecified; N12 Tubulo-interstitial nephritis, not specified as acute or chronic; I12.9 Hypertensive chronic kidney disease with stage 1 through stage 4 chronic kidney disease, or unspecified chronic kidney disease; R13.10 Dysphagia, unspecified; E78.5 Hyperlipidemia, unspecified; F06.31 Mood disorder due to known physiological condition with depressive features; K59.00 Constipation, unspecified; E11.22 Type 2 diabetes mellitus with diabetic chronic kidney disease; N18.9 Chronic kidney disease, unspecified; D64.9 Anemia, unspecified
CPT/HCPCS: 71045; 76775; 80048; 80053; 81001; 81003; 82043; 82728; 82962; 83036; 83540; 83735; 84100; 84155; 84300; 85025; 87081; 87086; 92507; 92523; 92526; 92610; 93005; 97110; 97112; 97116; 97163; 97167; 97530; 97535; 97542